=== PATIENT | female | born 1950 | race Hispanic/Latino ===

== ENCOUNTER 2023-04-29 06:54 | Day surgery (SDC) | payer MEDICARE ==
[2023-04-26 09:38] VITALS: BP 134/74; PULSE 78; RESP 19
[2023-04-26 09:46] LABS: BASOPHILS # (AUTO) 0.02 K/uL (0.00-0.20); BASOPHILS % (AUTO) 0.3 % (0.0-5.0); EOSINOPHILS # (AUTO) 0.09 K/uL (0.00-0.70); EOSINOPHILS % (AUTO) 1.2 % (0.0-8.0); HEMATOCRIT 41.5 % (36-48); IMMATURE GRANULOCYTE ABSOLUTE 0.03 K/uL (0-1); LYMPHOCYTES # (AUTO) 1.7 K/uL (1.0-4.8); MEAN CORPUSCULAR HEMOGLOBIN 31.4 pg (27.0-33.0); MEAN CORPUSCULAR VOLUME 92.4 fL (79-99); MONOCYTES # (AUTO) 0.5 K/uL (0.1-1.0); MONOCYTES % (AUTO) 6.9 % (3.0-13.0); NEUTROPHILS % (AUTO) 68.2 % (40.0-77.0); PLATELET COUNT (AUTO) 337 K/uL (130-400); RED BLOOD CELL COUNT(AUTO) 4.49 MIL/uL (4.00-5.50); WHITE BLOOD COUNT (AUTO) 7.4 K/uL (4.8-10.8)
[2023-04-26 10:08] LABS: INR < 0.93 (0.85-1.15); PROTHROMBIN TIME 10.5 SEC (9.6-11.6)
[2023-04-26 10:10] LABS: PARTIAL THROMBOPLASTIN TIME 28.1 SEC (26.3-35.5)
[~2023-04-29] VITALS: Ht 157.5 cm; Wt 65.0 kg
[2023-04-29] VITALS (17 sets, daily range): BP systolic 128–149; BP diastolic 59–79; PULSE 67–84; RESP 13–19
[2023-04-29] MEDS ORDERED: LACTATED RINGERS 1000ML 1,000 ML IV ONE (07:11)
[2023-04-29] MEDS: CEFAZOLIN SODIUM 2 GM VIAL ONE ×2 (07:31→08:00)
[2023-04-29] MEDS ORDERED: LIDOCAINE HCL MPF 1% 5ML VIAL ONE (07:48)
[2023-04-29] MEDS ORDERED: LIDOCAINE PF 100MG/5ML (2%) SYRINGE 5ML ONE (07:51)
[2023-04-29] MEDS ORDERED: GLYCOPYRROLATE 1 MG/5 ML SYRINGE ONE (07:51)
[2023-04-29] MEDS ORDERED: MIDAZOLAM HCL 1 MG/ML 2ML VIAL ONE (07:51)
[2023-04-29] MEDS ORDERED: PROPOFOL 10 MG/ML 20ML VIAL IV ONE (07:51)
[2023-04-29] MEDS ORDERED: FENTANYL CITRATE PF 50 MCG/1 ML 2ML VIAL ONE (07:52)
[2023-04-29] MEDS ORDERED: BACITRACIN 28.4 GM OINT TP ONE (07:55)
[2023-04-29] MEDS ORDERED: LIDOCAINE HCL/EPINEPHRINE 50 ML VIAL IJ ONE (07:55)
[2023-04-29] MEDS ORDERED: PHENYLEPHRINE HCL 10 MG/ML 1ML VIAL IV ONE (08:30)
[2023-04-29] MEDS ORDERED: ONDANSETRON 4MG INJ ONE (09:38)
== END 2023-04-29 12:15 | disposition home or self-care (01) ==
LOC: DAH 06:54
PROVIDERS: ATTEND Otolaryngology Plastic Surgery within the Head & Neck
DX: L72.3 Sebaceous cyst (principal); D18.09 Hemangioma of other sites; Z88.5 Allergy status to narcotic agent; Z91.041 Radiographic dye allergy status; Z80.1 Family history of malignant neoplasm of trachea, bronchus and lung; Z80.0 Family history of malignant neoplasm of digestive organs; Z90.49 Acquired absence of other specified parts of digestive tract; Z98.51 Tubal ligation status; Z90.710 Acquired absence of both cervix and uterus; Z98.891 History of uterine scar from previous surgery; Z98.890 Other specified postprocedural states
CPT/HCPCS: 93005; 85025; 85610; 85730; 36415; 11443; 88304; A6260; A4663; A4606; J7120; J3010; J2001; J2250; J2704; J2405; J2371; J3490; J0690; A4649; A4930 ×3; A4215; A4223; A4222; A4221; A4600